=== PATIENT | female | born 1945 | race Caucasian/White ===

== ENCOUNTER 2017-11-11 14:19 | Inpatient (IN) ==
[2017-11-11] MEDS ORDERED: SODIUM CHLORIDE 0.9% 500 ML IV STA (15:06)
[2017-11-11] MEDS ORDERED: ASPIRIN 325 MG TABLET PO STA (15:06)
[2017-11-11] MEDS ORDERED: METOPROLOL TARTRATE 25 MG TABLET PO STA (15:08)
[2017-11-11] MEDS ORDERED: ENOXAPARIN 100 MG/ML SYRINGE SUBCUT STA (15:30)
[2017-11-11] MEDS ORDERED: ENOXAPARIN 60 MG/0.6 ML SYRINGE ONE (15:33)
[2017-11-11 15:34] LABS: Basophils # 0.1 10*3/uL (0.0-0.2); Basophils % 0.9 % (0.0-0.8); Eosinophils # 0.3 10*3/uL (0.0-0.87); Eosinophils % 3.1 % (0.00-10.9); Hematocrit 40.2 VOL% (35.7-47.0); Hemoglobin 13.7 GM/DL (12.0-16.0); Immature Granulocytes % 0.5 %; Immature Granulocytes Absolute 0.05 #; Lymphocytes # 2.1 10*3/uL (1.4-4.0); Mean Corpuscular HGB Conc 34.1 GM/DL (32-36); Mean Corpuscular Hemoglobin 29 PG (27-34); Mean Corpuscular Volume 85.7 FL (87-102); Mean Platelet Volume 10.1 FL (9.6-12.0); Monocytes # 0.8 10*3/uL (0.11-0.8); Monocytes % 8.7 % (1.7-12.7); Neutrophils # 6.3 10*3/uL (1.4-7.4); Neutrophils % 64.8 % (38.7-73.9); Platelet Count 243 T/CUMM (130-400); Red Blood Count 4.69 MC/CUMM (3.8-5.5); Red Cell Distribution Width 14.9 % (9.3-17.3); White Blood Count 9.7 T/CUMM (4-12)
[2017-11-11 15:46] LABS: PT Patient Result 10.1 SECS
[2017-11-11 16:01] LABS: Albumin 3.5 G/DL (3.4-5.0); Bilirubin,Total 0.6 MG/DL (0.2-1.0); Calcium 9.2 MG/DL (8.5-10.1); Osmolality,Calculated 289.8 MOS/KG (273-304); Potassium 2.6 MMOL/L (3.5-5.1); Thyroid Stimulating Hormone 2.78 uIU/ml (0.358-3.74); Total Protein 7.4 G/DL (6.4-8.3)
[2017-11-11 16:04] LABS: Troponin I Only 0.26 NG/ML (0.00-0.045)
[2017-11-11] MEDS ORDERED: POTASSIUM CHLORIDE 20 MEQ TABLET PO STA (16:18)
[2017-11-11] MEDS ORDERED: POTASSIUM CHLORIDE RIDER 10 MEQ in PREMIX 1 EACH IV ONE (16:18)
[2017-11-11] MEDS ORDERED: FUROSEMIDE 20 MG/2 ML VIAL IV STA (16:40)
[2017-11-11] MEDS ORDERED: ONDANSETRON 4 MG/2 ML VIAL IV PRN (18:59)
[2017-11-11] MEDS ORDERED: SODIUM CHLORIDE 0.9% 1,000 ML IV SCH (18:59)
[2017-11-11] MEDS ORDERED: MAGNESIUM SULF RIDER 4 GM in PREMIX 1 EACH IV PRN (18:59)
[2017-11-11] MEDS ORDERED: MAGNESIUM SULF RIDER 2 GM in PREMIX 1 EACH IV PRN (18:59)
[2017-11-11] MEDS ORDERED: NITROGLYCERIN SL 0.4 MG TABLET SL PRN (18:59)
[2017-11-11 19:10] LABS: Apearance,Urine CLEAR (Clear); Bilirubin,Urine Negative (Negative); Blood, Urine Small mg/dL (Negative); Glucose,Urine (UA) Negative (Negative); Ketones,Urine Negative (Negative); Mucus,Urine Occasional /LPF (Occasional); Nitrite,Urine Negative (Negative); Protein,Urine Negative; RBC,Urine 2 /HPF (0-4); Squamous Epithelial Cell,Urine Occasional /HPF (0-10); Urine Color Straw (Yellow); Urine Specific Gravity 1.008 (1.001-1.035); Urine Urobilinogen < 2.0 EU/DL (0.2-1.0); WBC,Urine 12 /HPF (0-6)
[2017-11-11] MEDS: ALBUTEROL/IPRATROPIUM 3 ML NEB RESP TX SCH (19:29)
[2017-11-11 20:03] LABS: Troponin I Only 0.258 NG/ML (0.00-0.045)
[2017-11-11] MEDS ORDERED: ALBUTEROL 2.5 MG/3 ML NEB RESP TX PRN (21:00)
[2017-11-11] MEDS ORDERED: ENOXAPARIN 60 MG/0.6 ML SYRINGE SUBCUT SCH (21:00)
[2017-11-11] MEDS ORDERED: ZALEPLON 5 MG CAPSULE PO PRN (21:00)
[2017-11-11] MEDS: ZOLPIDEM 5 MG TABLET PO PRN (21:40)
[2017-11-11] MEDS: CARVEDILOL 3.125 MG TABLET PO SCH (21:41)
[2017-11-11] MEDS: FUROSEMIDE 40 MG TABLET PO SCH (21:41)
[2017-11-11] MEDS: PANTOPRAZOLE 40 MG TABLET PO SCH (21:41)
[2017-11-12 05:22] LABS: Basophils # 0.1 10*3/uL (0.0-0.2); Basophils % 0.9 % (0.0-0.8); Eosinophils # 0.4 10*3/uL (0.0-0.87); Eosinophils % 3.9 % (0.00-10.9); Hematocrit 37.6 VOL% (35.7-47.0); Hemoglobin 11.9 GM/DL (12.0-16.0); Immature Granulocytes % 0.5 %; Immature Granulocytes Absolute 0.05 #; Lymphocytes # 2.5 10*3/uL (1.4-4.0); Lymphocytes % 26.1 % (21.3-54.2); Mean Corpuscular HGB Conc 31.6 GM/DL (32-36); Mean Corpuscular Hemoglobin 29 PG (27-34); Mean Corpuscular Volume 90.6 FL (87-102); Mean Platelet Volume 10.4 FL (9.6-12.0); Monocytes # 1.1 10*3/uL (0.11-0.8); Monocytes % 11.1 % (1.7-12.7); Neutrophils # 5.5 10*3/uL (1.4-7.4); Neutrophils % 57.5 % (38.7-73.9); Platelet Count 224 T/CUMM (130-400); Red Blood Count 4.15 MC/CUMM (3.8-5.5); Red Cell Distribution Width 15.1 % (9.3-17.3); White Blood Count 9.5 T/CUMM (4-12)
[2017-11-12 05:52] LABS: Bilirubin,Total 0.5 MG/DL (0.2-1.0); Calcium 8.7 MG/DL (8.5-10.1); Osmolality,Calculated 294.4 MOS/KG (273-304); Potassium 3.2 MMOL/L (3.5-5.1); Total Protein 6.5 G/DL (6.4-8.3); Troponin I Only 0.246 NG/ML (0.00-0.045)
[2017-11-12 05:53] LABS: Risk Ratio 3.78; Thyroid Stimulating Hormone 3.41 uIU/ml (0.358-3.74); VLDL CHOLESTEROL 40.4 MG/DL
[2017-11-12] MEDS: LEVOTHYROXINE 75 MCG TABLET PO SCH (06:29)
[2017-11-12] MEDS ORDERED: POTASSIUM CHLORIDE 20 MEQ TABLET PO ONE (06:30)
[2017-11-12] MEDS: methylPREDNISolone SOD SUC 125 MG/2 ML VIAL IV SCH ×2 (06:42→18:05)
[2017-11-12] MEDS: ALBUTEROL/IPRATROPIUM 3 ML NEB RESP TX SCH ×4 (07:02→19:20)
[2017-11-12 07:30] LABS: Calcium 8.6 MG/DL (8.5-10.1); Osmolality,Calculated 290.7 MOS/KG (273-304); Potassium 3.4 MMOL/L (3.5-5.1)
[2017-11-12] MEDS: ASPIRIN EC 81 MG TABLET PO SCH (08:32)
[2017-11-12] MEDS: PARoxetine 20 MG TABLET PO SCH (08:32)
[2017-11-12] MEDS: PANTOPRAZOLE 40 MG TABLET PO SCH ×2 (08:32→21:14)
[2017-11-12] MEDS: FUROSEMIDE 40 MG TABLET PO SCH ×2 (08:32→21:14)
[2017-11-12] MEDS: POTASSIUM CHLORIDE 20 MEQ TABLET PO SCH ×2 (08:32→21:14)
[2017-11-12] MEDS: ATORVASTATIN 40 MG TABLET PO SCH (08:32)
[2017-11-12] MEDS: CARVEDILOL 3.125 MG TABLET PO SCH ×2 (08:32→17:04)
[2017-11-12] MEDS: MAGNESIUM OXIDE 400 MG TABLET PO SCH ×2 (08:32→21:14)
[2017-11-12] MEDS: APIXABAN 2.5 MG TABLET PO SCH ×2 (08:33→21:14)
[2017-11-12] MEDS: SPIRONOLACTONE 25 MG TABLET PO SCH (08:33)
[2017-11-12] MEDS ORDERED: APIXABAN 5 MG TABLET PO SCH (09:00)
[2017-11-12] MEDS ORDERED: PANTOPRAZOLE 40 MG TABLET PO SCH (09:00)
[2017-11-12] MEDS ORDERED: LEVOFLOXACIN 500 MG TABLET PO SCH (09:00)
[2017-11-12 12:14] LABS: Troponin I Only 0.234 NG/ML (0.00-0.045)
[2017-11-12] MEDS ORDERED: ACETAMINOPHEN 325 MG TABLET PO PRN (16:47)
[2017-11-12] MEDS ORDERED: DOCUSATE SODIUM 100 MG CAPSULE PO PRN (16:47)
[2017-11-12] MEDS ORDERED: BISACODYL 5 MG TABLET PO PRN (16:47)
[2017-11-12] MEDS ORDERED: LACTULOSE 20 GM/30 ML UDCUP PO PRN (16:47)
[2017-11-12] MEDS ORDERED: PROMETHAZINE 25 MG TABLET PO PRN (16:47)
[2017-11-12] MEDS: ZOLPIDEM 5 MG TABLET PO PRN (21:13)
[2017-11-12] MEDS: FLUTICASONE/SALMETEROL 250-50 DISKUS 14 DOSE INH PRN (21:15)
[2017-11-13 04:26] LABS: Basophils % 0.1 % (0.0-0.8); Hematocrit 33.9 VOL% (35.7-47.0); Hemoglobin 10.7 GM/DL (12.0-16.0); Immature Granulocytes % 0.6 %; Immature Granulocytes Absolute 0.07 #; Lymphocytes # 0.9 10*3/uL (1.4-4.0); Lymphocytes % 8.5 % (21.3-54.2); Mean Corpuscular HGB Conc 31.6 GM/DL (32-36); Mean Corpuscular Hemoglobin 29 PG (27-34); Mean Corpuscular Volume 90.6 FL (87-102); Mean Platelet Volume 10.6 FL (9.6-12.0); Monocytes # 0.2 10*3/uL (0.11-0.8); Monocytes % 1.8 % (1.7-12.7); Neutrophils # 9.6 10*3/uL (1.4-7.4); Platelet Count 179 T/CUMM (130-400); Red Blood Count 3.74 MC/CUMM (3.8-5.5); Red Cell Distribution Width 14.7 % (9.3-17.3); White Blood Count 10.8 T/CUMM (4-12)
[2017-11-13] MEDS: LEVOTHYROXINE 75 MCG TABLET PO SCH (06:08)
[2017-11-13] MEDS: methylPREDNISolone SOD SUC 125 MG/2 ML VIAL IV SCH (06:08)
[2017-11-13] MEDS: ALBUTEROL/IPRATROPIUM 3 ML NEB RESP TX SCH (07:15)
[2017-11-13] MEDS: FLUTICASONE/SALMETEROL 250-50 DISKUS 14 DOSE INH PRN (07:19)
[2017-11-13 07:51] VITALS: BP 103/60
[2017-11-13] MEDS: APIXABAN 2.5 MG TABLET PO SCH (08:15)
[2017-11-13] MEDS: PANTOPRAZOLE 40 MG TABLET PO SCH (08:15)
[2017-11-13] MEDS: ATORVASTATIN 40 MG TABLET PO SCH (08:15)
[2017-11-13] MEDS: CARVEDILOL 3.125 MG TABLET PO SCH (08:15)
[2017-11-13] MEDS: MAGNESIUM OXIDE 400 MG TABLET PO SCH (08:15)
[2017-11-13] MEDS: ASPIRIN EC 81 MG TABLET PO SCH (08:16)
[2017-11-13] MEDS: SPIRONOLACTONE 25 MG TABLET PO SCH (08:16)
[2017-11-13] MEDS: FUROSEMIDE 40 MG TABLET PO SCH (08:16)
[2017-11-13] MEDS: PARoxetine 20 MG TABLET PO SCH (08:16)
[2017-11-13] MEDS: POTASSIUM CHLORIDE 20 MEQ TABLET PO SCH (08:16)
[2017-11-13] MEDS ORDERED: LEVOFLOXACIN 250 MG TABLET PO SCH (09:00)
== END 2017-11-13 09:17 | disposition home or self-care (01) | DRG 308 ==
LOC: N.ED 14:19 → N.EDINP 16:20 → N.TELEN 19:47
PROVIDERS: ADMIT Internal Medicine Cardiovascular Disease; ATTEND Internal Medicine Cardiovascular Disease

== ENCOUNTER 2018-04-10 04:05 | Inpatient (IN) ==
[2018-04-10] MEDS ORDERED: ONDANSETRON 4 MG/2 ML VIAL IV STA (04:27)
[2018-04-10] MEDS ORDERED: ALBUTEROL NEB SOLN 5 MG/ML 20 ML/BOTTLE CONT NEB STA (04:27)
[2018-04-10] MEDS ORDERED: methylPREDNISolone SOD SUC 125 MG/2 ML VIAL IV STA (04:27)
[2018-04-10 04:45] LABS: Basophils # 0.1 10*3/uL (0.0-0.2); Basophils % 0.4 % (0.0-0.8); Eosinophils % 0.2 % (0.00-10.9); Hematocrit 38.2 VOL% (35.7-47.0); Hemoglobin 12.2 GM/DL (12.0-16.0); Immature Granulocytes % 0.3 %; Immature Granulocytes Absolute 0.04 #; Lymphocytes # 1.4 10*3/uL (1.4-4.0); Lymphocytes % 11.5 % (21.3-54.2); Mean Corpuscular HGB Conc 31.9 GM/DL (32-36); Mean Corpuscular Hemoglobin 28 PG (27-34); Mean Corpuscular Volume 88.6 FL (87-102); Mean Platelet Volume 10.2 FL (9.6-12.0); Monocytes # 1.4 10*3/uL (0.11-0.8); Monocytes % 10.9 % (1.7-12.7); Neutrophils # 9.5 10*3/uL (1.4-7.4); Neutrophils % 76.7 % (38.7-73.9); Platelet Count 191 T/CUMM (130-400); Red Blood Count 4.31 MC/CUMM (3.8-5.5); Red Cell Distribution Width 14.7 % (9.3-17.3); White Blood Count 12.4 T/CUMM (4-12)
[2018-04-10 04:55] LABS: PT Patient Result 10.4 SECS
[2018-04-10 05:07] LABS: Albumin 3.4 G/DL (3.4-5.0); Bilirubin,Total 0.9 MG/DL (0.2-1.0); Calcium 10.1 MG/DL (8.5-10.1); Osmolality,Calculated 276.8 MOS/KG (273-304); Potassium 3.8 MMOL/L (3.5-5.1); Total Protein 7.4 G/DL (6.4-8.3)
[2018-04-10 05:21] LABS: Troponin I 0.167 NG/ML (0.00-0.045)
[2018-04-10] MEDS ORDERED: FUROSEMIDE 40 MG/4 ML VIAL IV STA (05:35)
[2018-04-10] MEDS ORDERED: NICOTINE 21 MG/24 HR PATCH TRANSDERM PRN (06:27)
[2018-04-10] MEDS ORDERED: methylPREDNISolone SOD SUC 40 MG/1 ML VIAL IV SCH (06:30)
[2018-04-10 06:53] LABS: Apearance,Urine CLEAR (Clear); Bacteria,Urine Occasional /HPF (Few); Bilirubin,Urine Negative (Negative); Blood, Urine Small mg/dL (Negative); Glucose,Urine (UA) Negative (Negative); Hyaline Casts,Urine 1 /LPF (0-3); Ketones,Urine Negative (Negative); Mucus,Urine Occasional /LPF (Occasional); Nitrite,Urine Negative (Negative); Protein,Urine Negative; RBC,Urine 4 /HPF (0-4); Squamous Epithelial Cell,Urine Occasional /HPF (0-10); Urine Color Yellow (Yellow); Urine Specific Gravity 1.012 (1.001-1.035); Urine Urobilinogen < 2.0 EU/DL (0.2-1.0); WBC,Urine <1 /HPF (0-6)
[2018-04-10 06:55] LABS: Barbiturates Screen,Urine Negative (Negative); Benzodiazepines Screen,Urine Negative (Negative); Cannabinoid Screen,Urine Negative (Negative); Opiate Screen,Urine Negative (Negative); Phencyclidine Screen,Urine Negative (Negative)
[2018-04-10] MEDS: ALBUTEROL/IPRATROPIUM 3 ML NEB RESP TX SCH ×6 (07:02→23:01)
[2018-04-10] MEDS ORDERED: LEVOFLOXACIN INJ 750 MG in PREMIX 1 EACH IV SCH (08:00)
[2018-04-10] MEDS ORDERED: MEROPENEM 500 MG in SODIUM CHLORIDE 0.9% 100 ML IV SCH (10:00)
[2018-04-10] MEDS: DICLOFENAC SODIUM 50 MG TABLET PO SCH ×2 (10:39→21:34)
[2018-04-10] MEDS: PANTOPRAZOLE 40 MG TABLET PO SCH (10:40)
[2018-04-10] MEDS ORDERED: NITROGLYCERIN SL 0.4 MG TABLET SL PRN (10:48)
[2018-04-10] MEDS: APIXABAN 2.5 MG TABLET PO SCH ×2 (14:06→21:33)
[2018-04-10] MEDS: FUROSEMIDE 40 MG TABLET PO SCH (15:55)
[2018-04-10] MEDS ORDERED: APIXABAN 5 MG TABLET PO SCH (21:00)
[2018-04-10] MEDS: FLUTICASONE/SALMETEROL 250-50 DISKUS 14 DOSE INH SCH (21:33)
[2018-04-10] MEDS: POTASSIUM CHLORIDE 20 MEQ TABLET PO SCH (21:33)
[2018-04-10] MEDS: CARVEDILOL 3.125 MG TABLET PO SCH (21:33)
[2018-04-10] MEDS: ZALEPLON 5 MG CAPSULE PO SCH (21:33)
[2018-04-11] MEDS: ALBUTEROL/IPRATROPIUM 3 ML NEB RESP TX SCH ×5 (02:24→19:26)
[2018-04-11 03:45] LABS: Basophils % 0.1 % (0.0-0.8); Hematocrit 31.6 VOL% (35.7-47.0); Immature Granulocytes % 0.5 %; Immature Granulocytes Absolute 0.06 #; Lymphocytes % 9.1 % (21.3-54.2); Mean Corpuscular HGB Conc 31.6 GM/DL (32-36); Mean Corpuscular Hemoglobin 28 PG (27-34); Mean Corpuscular Volume 89.5 FL (87-102); Mean Platelet Volume 11.2 FL (9.6-12.0); Monocytes % 9.4 % (1.7-12.7); Neutrophils # 8.9 10*3/uL (1.4-7.4); Neutrophils % 80.9 % (38.7-73.9); Platelet Count 183 T/CUMM (130-400); Red Blood Count 3.53 MC/CUMM (3.8-5.5); Red Cell Distribution Width 14.6 % (9.3-17.3); White Blood Count 11.1 T/CUMM (4-12)
[2018-04-11 04:00] LABS: Calcium 10.4 MG/DL (8.5-10.1); Osmolality,Calculated 292.5 MOS/KG (273-304); Potassium 4.2 MMOL/L (3.5-5.1)
[2018-04-11 04:13] LABS: Free T4 (Free Thyroxine) 1.12 NG/DL (0.76-1.46); Thyroid Stimulating Hormone 0.12 uIU/ml (0.358-3.74)
[2018-04-11] MEDS: ACETAMINOPHEN 325 MG TABLET PO PRN ×2 (05:33→09:22)
[2018-04-11] MEDS: LEVOTHYROXINE 75 MCG TABLET PO SCH (06:58)
[2018-04-11] MEDS ORDERED: prednisoLONE 5 MG TABLET PO SCH (09:00)
[2018-04-11] MEDS ORDERED: APIXABAN 5 MG TABLET PO SCH (09:00)
[2018-04-11] MEDS: ASPIRIN EC 81 MG TABLET PO SCH (09:21)
[2018-04-11] MEDS: PANTOPRAZOLE 40 MG TABLET PO SCH (09:22)
[2018-04-11] MEDS: AZITHROMYCIN 250 MG TABLET PO SCH (09:23)
[2018-04-11] MEDS: SPIRONOLACTONE 25 MG TABLET PO SCH (09:23)
[2018-04-11] MEDS: APIXABAN 2.5 MG TABLET PO SCH ×2 (09:23→21:14)
[2018-04-11] MEDS: FLUTICASONE/SALMETEROL 250-50 DISKUS 14 DOSE INH SCH ×2 (09:23→21:14)
[2018-04-11] MEDS: POTASSIUM CHLORIDE 20 MEQ TABLET PO SCH ×2 (09:23→21:14)
[2018-04-11] MEDS: PARoxetine 20 MG TABLET PO SCH (09:23)
[2018-04-11] MEDS: CARVEDILOL 3.125 MG TABLET PO SCH ×2 (09:23→21:13)
[2018-04-11] MEDS: ATORVASTATIN 40 MG TABLET PO SCH (09:23)
[2018-04-11] MEDS: DICLOFENAC SODIUM 50 MG TABLET PO SCH (09:23)
[2018-04-11] MEDS: FUROSEMIDE 40 MG/4 ML VIAL IV SCH ×2 (09:55→16:18)
[2018-04-11] MEDS: BISACODYL 5 MG TABLET PO PRN ×2 (10:38→16:17)
[2018-04-11] MEDS ORDERED: LEVOFLOXACIN INJ 750 MG in PREMIX 1 EACH IV ONE (11:00)
[2018-04-11] MEDS: FUROSEMIDE 40 MG TABLET PO SCH (11:31)
[2018-04-11] MEDS: ONDANSETRON 4 MG/2 ML VIAL IV PRN (16:18)
[2018-04-11 16:40] LABS: Apearance,Urine CLEAR (Clear); Bilirubin,Urine Negative (Negative); Blood, Urine Negative (Negative); Glucose,Urine (UA) Negative (Negative); Hyaline Casts,Urine 6 /LPF (0-3); Ketones,Urine Negative (Negative); Mucus,Urine Occasional /LPF (Occasional); Nitrite,Urine Negative (Negative); Protein,Urine Negative; Squamous Epithelial Cell,Urine Occasional /HPF (0-10); Urine Color Yellow (Yellow); Urine Specific Gravity 1.008 (1.001-1.035); Urine Urobilinogen < 2.0 EU/DL (0.2-1.0); WBC,Urine 1 /HPF (0-6)
[2018-04-11] MEDS ORDERED: POLYETHYLENE GLYCOL POWDER 17 GM PACK PO PRN (18:06)
[2018-04-11] MEDS: MICONAZOLE 100 MG VAG SUPP 7/BOX VAG SCH ×2 (18:12→21:15)
[2018-04-11] MEDS: ZALEPLON 5 MG CAPSULE PO SCH (21:13)
[2018-04-12] MEDS: ALBUTEROL/IPRATROPIUM 3 ML NEB RESP TX SCH ×7 (00:36→23:29)
[2018-04-12 03:40] LABS: Basophils % 0.2 % (0.0-0.8); Eosinophils % 0.1 % (0.00-10.9); Hematocrit 34.6 VOL% (35.7-47.0); Hemoglobin 10.8 GM/DL (12.0-16.0); Immature Granulocytes % 0.7 %; Lymphocytes # 1.4 10*3/uL (1.4-4.0); Lymphocytes % 9.9 % (21.3-54.2); Mean Corpuscular HGB Conc 31.2 GM/DL (32-36); Mean Corpuscular Hemoglobin 28 PG (27-34); Mean Corpuscular Volume 88.7 FL (87-102); Mean Platelet Volume 10.9 FL (9.6-12.0); Monocytes # 1.3 10*3/uL (0.11-0.8); Monocytes % 9.2 % (1.7-12.7); Neutrophils # 11.6 10*3/uL (1.4-7.4); Neutrophils % 79.9 % (38.7-73.9); Platelet Count 248 T/CUMM (130-400); Red Cell Distribution Width 14.9 % (9.3-17.3); White Blood Count 14.5 T/CUMM (4-12)
[2018-04-12 04:10] LABS: Calcium 9.8 MG/DL (8.5-10.1); Osmolality,Calculated 296.3 MOS/KG (273-304); Potassium 4.3 MMOL/L (3.5-5.1)
[2018-04-12] MEDS: PANTOPRAZOLE 40 MG TABLET PO SCH (10:01)
[2018-04-12] MEDS: FUROSEMIDE 40 MG/4 ML VIAL IV SCH ×2 (10:01→16:26)
[2018-04-12] MEDS: POTASSIUM CHLORIDE 20 MEQ TABLET PO SCH ×2 (10:01→21:03)
[2018-04-12] MEDS: BISACODYL 5 MG TABLET PO PRN (10:01)
[2018-04-12] MEDS: PARoxetine 20 MG TABLET PO SCH (10:02)
[2018-04-12] MEDS: ASPIRIN EC 81 MG TABLET PO SCH (10:02)
[2018-04-12] MEDS: ATORVASTATIN 40 MG TABLET PO SCH (10:02)
[2018-04-12] MEDS: APIXABAN 2.5 MG TABLET PO SCH ×2 (10:02→21:03)
[2018-04-12] MEDS: AZITHROMYCIN 250 MG TABLET PO SCH (10:03)
[2018-04-12] MEDS: CARVEDILOL 3.125 MG TABLET PO SCH ×2 (10:03→21:03)
[2018-04-12] MEDS: SPIRONOLACTONE 25 MG TABLET PO SCH (10:03)
[2018-04-12] MEDS: LEVOTHYROXINE 75 MCG TABLET PO SCH (10:04)
[2018-04-12] MEDS: methylPREDNISolone SOD SUC 40 MG/1 ML VIAL IV SCH ×2 (10:04→16:41)
[2018-04-12] MEDS: FLUTICASONE/SALMETEROL 250-50 DISKUS 14 DOSE INH SCH ×2 (10:05→21:08)
[2018-04-12 12:48] LABS: Apearance,Urine CLEAR (Clear); Bilirubin,Urine Negative (Negative); Blood, Urine Small mg/dL (Negative); Glucose,Urine (UA) Negative (Negative); Ketones,Urine Negative (Negative); Nitrite,Urine Negative (Negative); Protein,Urine Negative; RBC,Urine <1 /HPF (0-4); Urine Color Straw (Yellow); Urine Specific Gravity 1.004 (1.001-1.035); Urine Urobilinogen < 2.0 EU/DL (0.2-1.0)
[2018-04-12 13:22] LABS: ABG Base Excess 1.3 MMOL/L (-2.5-2.5); ABG HCO3 26.3 MMOL/L (20-26); ABG Oxygen Saturation 96.1 % (95-100); ABG PCO2 43.4 MM HG (35-48); ABG PH 7.401 (7.35-7.45); ABG PO2 86.4 MM HG (80-95); ABG TCO2 27.7 MMOL/L (23-27); Allen Test Positive; Pt O2 Delivery Device BIPAP
[2018-04-12] MEDS: DORNASE ALFA 2.5 MG/2.5 ML VIAL RESP TX SCH (19:29)
[2018-04-12] MEDS: ZALEPLON 5 MG CAPSULE PO SCH (21:03)
[2018-04-12] MEDS: MICONAZOLE 100 MG VAG SUPP 7/BOX VAG SCH (21:08)
[2018-04-13] MEDS: methylPREDNISolone SOD SUC 40 MG/1 ML VIAL IV SCH ×3 (01:02→16:23)
[2018-04-13 03:22] LABS: Basophils % 0.2 % (0.0-0.8); Hematocrit 36.7 VOL% (35.7-47.0); Hemoglobin 11.2 GM/DL (12.0-16.0); Immature Granulocytes % 2.2 %; Immature Granulocytes Absolute 0.29 #; Lymphocytes # 0.8 10*3/uL (1.4-4.0); Mean Corpuscular HGB Conc 30.5 GM/DL (32-36); Mean Corpuscular Hemoglobin 28 PG (27-34); Mean Platelet Volume 10.4 FL (9.6-12.0); Monocytes # 0.5 10*3/uL (0.11-0.8); Monocytes % 4.2 % (1.7-12.7); NRBC # 0.03 10*3/uL; Neutrophils # 11.3 10*3/uL (1.4-7.4); Neutrophils % 87.4 % (38.7-73.9); Platelet Count 274 T/CUMM (130-400); Red Blood Count 4.08 MC/CUMM (3.8-5.5); White Blood Count 12.9 T/CUMM (4-12)
[2018-04-13] MEDS: ALBUTEROL/IPRATROPIUM 3 ML NEB RESP TX SCH ×6 (03:40→22:41)
[2018-04-13 03:46] LABS: ABG Base Excess 0.8 MMOL/L (-2.5-2.5); ABG HCO3 25.1 MMOL/L (20-26); ABG Oxygen Saturation 98.7 % (95-100); ABG PCO2 41.9 MM HG (35-48); ABG PH 7.396 (7.35-7.45); Allen Test Positive; Pt O2 Delivery Device BIPAP
[2018-04-13 03:52] LABS: Osmolality,Calculated 291.5 MOS/KG (273-304); Potassium 5.2 MMOL/L (3.5-5.1)
[2018-04-13] MEDS: LEVOTHYROXINE 75 MCG TABLET PO SCH (06:57)
[2018-04-13] MEDS: DORNASE ALFA 2.5 MG/2.5 ML VIAL RESP TX SCH ×2 (07:53→19:17)
[2018-04-13] MEDS: CARVEDILOL 3.125 MG TABLET PO SCH ×2 (08:35→21:32)
[2018-04-13] MEDS: ATORVASTATIN 40 MG TABLET PO SCH (08:35)
[2018-04-13] MEDS: POTASSIUM CHLORIDE 20 MEQ TABLET PO SCH ×3 (08:35→21:34)
[2018-04-13] MEDS: PARoxetine 20 MG TABLET PO SCH (08:35)
[2018-04-13] MEDS: FUROSEMIDE 40 MG/4 ML VIAL IV SCH ×2 (08:36→16:23)
[2018-04-13] MEDS: AZITHROMYCIN 250 MG TABLET PO SCH (08:36)
[2018-04-13] MEDS: APIXABAN 2.5 MG TABLET PO SCH ×2 (08:36→21:32)
[2018-04-13] MEDS: ASPIRIN EC 81 MG TABLET PO SCH (08:36)
[2018-04-13] MEDS: SPIRONOLACTONE 25 MG TABLET PO SCH (08:36)
[2018-04-13] MEDS: PANTOPRAZOLE 40 MG TABLET PO SCH (08:37)
[2018-04-13] MEDS: FLUTICASONE/SALMETEROL 250-50 DISKUS 14 DOSE INH SCH ×2 (08:38→21:31)
[2018-04-13] MEDS ORDERED: LEVOFLOXACIN INJ 500 MG in PREMIX 1 EACH IV SCH (11:00)
[2018-04-13] MEDS: ONDANSETRON 4 MG/2 ML VIAL IV PRN (16:32)
[2018-04-13] MEDS: MICONAZOLE 100 MG VAG SUPP 7/BOX VAG SCH (21:31)
[2018-04-13] MEDS: ZALEPLON 5 MG CAPSULE PO SCH (21:32)
[2018-04-14] MEDS: methylPREDNISolone SOD SUC 40 MG/1 ML VIAL IV SCH ×2 (00:10→08:16)
[2018-04-14] MEDS: ALBUTEROL/IPRATROPIUM 3 ML NEB RESP TX SCH ×2 (02:37→07:55)
[2018-04-14 03:13] LABS: Basophils % 0.3 % (0.0-0.8); Hematocrit 34.4 VOL% (35.7-47.0); Hemoglobin 10.9 GM/DL (12.0-16.0); Immature Granulocytes % 6.1 %; Immature Granulocytes Absolute 0.95 #; Lymphocytes # 0.9 10*3/uL (1.4-4.0); Lymphocytes % 5.7 % (21.3-54.2); Mean Corpuscular HGB Conc 31.7 GM/DL (32-36); Mean Corpuscular Hemoglobin 28 PG (27-34); Mean Platelet Volume 10.4 FL (9.6-12.0); Monocytes # 1.1 10*3/uL (0.11-0.8); Monocytes % 6.9 % (1.7-12.7); NRBC # 0.03 10*3/uL; Neutrophils # 12.6 10*3/uL (1.4-7.4); Platelet Count 249 T/CUMM (130-400); Red Blood Count 3.91 MC/CUMM (3.8-5.5); Red Cell Distribution Width 14.8 % (9.3-17.3); White Blood Count 15.5 T/CUMM (4-12)
[2018-04-14 03:25] LABS: Calcium 10.3 MG/DL (8.5-10.1); Osmolality,Calculated 294.5 MOS/KG (273-304); Potassium 4.7 MMOL/L (3.5-5.1)
[2018-04-14 05:20] LABS: Lymphocytes 6 % (20-55); Platelet Estimate Normal; Segmented Neutrophils 84 % (50-85); Total Cells Counted 100
[2018-04-14] MEDS: LEVOTHYROXINE 75 MCG TABLET PO SCH (06:35)
[2018-04-14] MEDS: DORNASE ALFA 2.5 MG/2.5 ML VIAL RESP TX SCH (08:00)
[2018-04-14] MEDS: PANTOPRAZOLE 40 MG TABLET PO SCH (08:16)
[2018-04-14] MEDS: ASPIRIN EC 81 MG TABLET PO SCH (08:16)
[2018-04-14] MEDS: FUROSEMIDE 40 MG/4 ML VIAL IV SCH (08:16)
[2018-04-14] MEDS: SPIRONOLACTONE 25 MG TABLET PO SCH (08:16)
[2018-04-14] MEDS: AZITHROMYCIN 250 MG TABLET PO SCH (08:17)
[2018-04-14] MEDS: PARoxetine 20 MG TABLET PO SCH (08:17)
[2018-04-14] MEDS: APIXABAN 2.5 MG TABLET PO SCH (08:17)
[2018-04-14] MEDS: CARVEDILOL 3.125 MG TABLET PO SCH (08:17)
[2018-04-14] MEDS: ATORVASTATIN 40 MG TABLET PO SCH (08:17)
[2018-04-14] MEDS: FLUTICASONE/SALMETEROL 250-50 DISKUS 14 DOSE INH SCH (08:19)
[2018-04-14] MEDS: POTASSIUM CHLORIDE 20 MEQ TABLET PO SCH (08:19)
[2018-04-14 08:40] VITALS: BP 122/61
[2018-04-14] MEDS ORDERED: methylPREDNISolone 4 MG TABLET PO SCH ×2 (11:00→11:30)
[2018-04-14] MEDS ORDERED: CARVEDILOL 3.125 MG TABLET PO SCH (16:00)
[2018-04-15] MEDS ORDERED: CARVEDILOL 6.25 MG TABLET PO SCH (09:00)
== END 2018-04-14 12:08 | disposition home or self-care (01) | DRG 190 ==
LOC: N.ED 04:05 → N.EDINP 06:27 → SUATTDRO 06:27 → N.EDINP 07:30 → N.TELES 07:43
PROVIDERS: ADMIT Emergency Medicine; ATTEND Internal Medicine Infectious Disease

== ENCOUNTER 2018-12-08 12:49 | Observation (INO) ==
[2018-12-08] MEDS ORDERED: ALBUTEROL/IPRATROPIUM 3 ML NEB RESP TX STA (13:34)
[2018-12-08] MEDS ORDERED: methylPREDNISolone SOD SUC 125 MG/2 ML VIAL IV STA (13:34)
[2018-12-08 14:20] LABS: ABG Base Excess 0.4 MMOL/L (-2.5-2.5); ABG HCO3 24.7 MMOL/L (20-26); ABG Oxygen Saturation 94.2 % (95-100); ABG PCO2 36.1 MM HG (35-48); ABG PH 7.436 (7.35-7.45); ABG PO2 71.6 MM HG (80-95); ABG TCO2 22.2 MMOL/L (23-27); Allen Test Positive
[2018-12-08 14:34] LABS: Basophils # 0.1 10*3/uL (0.0-0.2); Basophils % 0.6 % (0.0-0.8); Eosinophils # 0.3 10*3/uL (0.0-0.87); Eosinophils % 2.9 % (0.00-10.9); Hematocrit 34.1 VOL% (35.7-47.0); Immature Granulocytes % 0.5 %; Immature Granulocytes Absolute 0.05 #; Lymphocytes # 1.8 10*3/uL (1.4-4.0); Mean Corpuscular HGB Conc 29.3 GM/DL (32-36); Mean Corpuscular Volume 88.1 FL (87-102); Monocytes % 10.4 % (1.7-12.7); Neutrophils % 68.6 % (38.7-73.9); Platelet Count 252 T/CUMM (130-400); Red Blood Count 3.87 MC/CUMM (3.8-5.5); Red Cell Distribution Width 15.5 % (9.3-17.3); White Blood Count 10.3 T/CUMM (4-12)
[2018-12-08 14:45] LABS: PT Patient Result 11.1 SECS; Partial Thromboplastin Time 25.8 SECS (0-40)
[2018-12-08 15:11] LABS: Apearance,Urine CLEAR (Clear); Bilirubin,Urine Negative (Negative); Blood, Urine Negative (Negative); Glucose,Urine (UA) Negative (Negative); Hyaline Casts,Urine 6 /LPF (0-3); Ketones,Urine Negative (Negative); Mucus,Urine Occasional /LPF (Occasional); Nitrite,Urine Negative (Negative); Protein,Urine Negative; Urine Color Yellow (Yellow); Urine Urobilinogen < 2.0 EU/DL (0.2-1.0)
[2018-12-08 15:11] LABS: Albumin 3.2 G/DL (3.4-5.0); Bilirubin,Total 0.5 MG/DL (0.2-1.0); Calcium 9.4 MG/DL (8.5-10.1); Osmolality,Calculated 285.3 MOS/KG (273-304); Total Protein 6.6 G/DL (6.4-8.3)
[2018-12-08 15:53] LABS: Barbiturates Screen,Urine Negative (Negative); Benzodiazepines Screen,Urine Negative (Negative); Cannabinoid Screen,Urine Negative (Negative); Opiate Screen,Urine Negative (Negative); Phencyclidine Screen,Urine Negative (Negative)
[2018-12-08] MEDS ORDERED: guaiFENesin/DM ER 600-30 MG TABLET PO PRN (15:58)
[2018-12-08] MEDS ORDERED: ONDANSETRON 4 MG/2 ML VIAL IV PRN (15:58)
[2018-12-08] MEDS ORDERED: ACETAMINOPHEN 325 MG TABLET PO PRN (15:58)
[2018-12-08] MEDS ORDERED: ALBUTEROL 2.5 MG/3 ML NEB RESP TX PRN (16:00)
[2018-12-08] MEDS ORDERED: NITROGLYCERIN SL 0.4 MG TABLET SL PRN (16:01)
[2018-12-08] MEDS: methylPREDNISolone SOD SUC 40 MG/1 ML VIAL IV SCH (17:30)
[2018-12-08] MEDS: FUROSEMIDE 40 MG/4 ML VIAL IV SCH (17:32)
[2018-12-08] MEDS: LEVOFLOXACIN INJ 750 MG in PREMIX 1 EACH IV SCH (17:34)
[2018-12-08] MEDS: ALBUTEROL/IPRATROPIUM 3 ML NEB RESP TX SCH (19:16)
[2018-12-08] MEDS ORDERED: FUROSEMIDE 20 MG TABLET PO SCH (21:00)
[2018-12-08] MEDS: CARVEDILOL 3.125 MG TABLET PO SCH (21:53)
[2018-12-08] MEDS: APIXABAN 2.5 MG TABLET PO SCH (21:53)
[2018-12-08] MEDS: POTASSIUM CHLORIDE 10 MEQ TABLET PO SCH (21:54)
[2018-12-08] MEDS: ZALEPLON 5 MG CAPSULE PO PRN (21:58)
[2018-12-08] MEDS: FLUTICASONE/SALMETEROL 250-50 DISKUS 14 DOSE INH SCH (22:00)
[2018-12-09] MEDS: ALBUTEROL/IPRATROPIUM 3 ML NEB RESP TX SCH ×4 (00:05→19:29)
[2018-12-09] MEDS: methylPREDNISolone SOD SUC 40 MG/1 ML VIAL IV SCH ×3 (00:08→16:24)
[2018-12-09] MEDS: ZALEPLON 5 MG CAPSULE PO PRN (00:09)
[2018-12-09 04:44] LABS: Basophils % 0.2 % (0.0-0.8); Hematocrit 29.7 VOL% (35.7-47.0); Hemoglobin 8.9 GM/DL (12.0-16.0); Immature Granulocytes % 0.6 %; Immature Granulocytes Absolute 0.04 #; Lymphocytes # 0.6 10*3/uL (1.4-4.0); Lymphocytes % 9.1 % (21.3-54.2); Mean Corpuscular Volume 86.3 FL (87-102); Mean Platelet Volume 10.4 FL (9.6-12.0); Monocytes % 1.2 % (1.7-12.7); Neutrophils % 88.9 % (38.7-73.9); Platelet Count 237 T/CUMM (130-400); Red Blood Count 3.44 MC/CUMM (3.8-5.5); Red Cell Distribution Width 15.2 % (9.3-17.3); White Blood Count 6.6 T/CUMM (4-12)
[2018-12-09 04:56] LABS: Calcium 9.7 MG/DL (8.5-10.1); Osmolality,Calculated 289.4 MOS/KG (273-304)
[2018-12-09] MEDS: LEVOTHYROXINE 75 MCG TABLET PO SCH (07:41)
[2018-12-09] MEDS: MAGNESIUM OXIDE 400 MG TABLET PO SCH (08:50)
[2018-12-09] MEDS: PANTOPRAZOLE 40 MG TABLET PO SCH (08:50)
[2018-12-09] MEDS: ATORVASTATIN 40 MG TABLET PO SCH (08:50)
[2018-12-09] MEDS: FLUTICASONE/SALMETEROL 250-50 DISKUS 14 DOSE INH SCH ×2 (08:51→22:52)
[2018-12-09] MEDS: SPIRONOLACTONE 25 MG TABLET PO SCH (08:51)
[2018-12-09] MEDS: PARoxetine 20 MG TABLET PO SCH (08:51)
[2018-12-09] MEDS: CARVEDILOL 3.125 MG TABLET PO SCH ×2 (08:51→22:46)
[2018-12-09] MEDS: POTASSIUM CHLORIDE 10 MEQ TABLET PO SCH ×2 (08:51→22:47)
[2018-12-09] MEDS: APIXABAN 2.5 MG TABLET PO SCH ×2 (08:51→22:47)
[2018-12-09] MEDS: ASPIRIN EC 81 MG TABLET PO SCH (08:51)
[2018-12-09] MEDS: ASCORBIC ACID 500 MG TABLET PO SCH (08:51)
[2018-12-09] MEDS: FUROSEMIDE 40 MG/4 ML VIAL IV SCH (08:55)
[2018-12-09] MEDS: FUROSEMIDE 40 MG TABLET PO SCH (16:24)
[2018-12-10] MEDS: ALBUTEROL/IPRATROPIUM 3 ML NEB RESP TX SCH ×4 (00:09→19:49)
[2018-12-10] MEDS ORDERED: METOPROLOL TARTRATE 5 MG/5 ML VIAL IV ONE (01:56)
[2018-12-10] MEDS: methylPREDNISolone SOD SUC 40 MG/1 ML VIAL IV SCH ×2 (02:06→09:00)
[2018-12-10 05:08] LABS: Basophils % 0.1 % (0.0-0.8); Hematocrit 29.9 VOL% (35.7-47.0); Hemoglobin 9.1 GM/DL (12.0-16.0); Immature Granulocytes % 0.6 %; Immature Granulocytes Absolute 0.08 #; Lymphocytes # 0.8 10*3/uL (1.4-4.0); Lymphocytes % 5.4 % (21.3-54.2); Mean Corpuscular HGB Conc 30.4 GM/DL (32-36); Mean Corpuscular Volume 85.9 FL (87-102); Mean Platelet Volume 10.5 FL (9.6-12.0); Monocytes % 3.9 % (1.7-12.7); NRBC # 0.02 10*3/uL; Platelet Count 262 T/CUMM (130-400); Red Blood Count 3.48 MC/CUMM (3.8-5.5); Red Cell Distribution Width 15.4 % (9.3-17.3); White Blood Count 13.8 T/CUMM (4-12)
[2018-12-10 05:16] LABS: Calcium 10.6 MG/DL (8.5-10.1); Osmolality,Calculated 293.4 MOS/KG (273-304)
[2018-12-10] MEDS: LEVOTHYROXINE 75 MCG TABLET PO SCH (06:32)
[2018-12-10] MEDS: FLUTICASONE/SALMETEROL 250-50 DISKUS 14 DOSE INH SCH ×2 (08:59→20:43)
[2018-12-10] MEDS: APIXABAN 2.5 MG TABLET PO SCH ×2 (09:00→20:42)
[2018-12-10] MEDS: FUROSEMIDE 40 MG TABLET PO SCH ×2 (09:00→16:20)
[2018-12-10] MEDS: PARoxetine 20 MG TABLET PO SCH (09:00)
[2018-12-10] MEDS: POTASSIUM CHLORIDE 10 MEQ TABLET PO SCH ×2 (09:00→20:42)
[2018-12-10] MEDS: SPIRONOLACTONE 25 MG TABLET PO SCH (09:00)
[2018-12-10] MEDS: ASCORBIC ACID 500 MG TABLET PO SCH (09:00)
[2018-12-10] MEDS: CARVEDILOL 3.125 MG TABLET PO SCH (09:00)
[2018-12-10] MEDS: ASPIRIN EC 81 MG TABLET PO SCH (09:00)
[2018-12-10] MEDS: ATORVASTATIN 40 MG TABLET PO SCH (09:00)
[2018-12-10] MEDS: PANTOPRAZOLE 40 MG TABLET PO SCH (09:00)
[2018-12-10] MEDS: MAGNESIUM OXIDE 400 MG TABLET PO SCH (09:02)
[2018-12-10] MEDS ORDERED: METOPROLOL TARTRATE 25 MG TABLET PO ONE (11:46)
[2018-12-10 12:28] LABS: Free T4 (Free Thyroxine) 1.32 NG/DL (0.76-1.46); Thyroid Stimulating Hormone 0.213 uIU/ml (0.358-3.74)
[2018-12-10] MEDS ORDERED: ACETAMINOPHEN 500 MG TABLET PO PRN (14:52)
[2018-12-10] MEDS ORDERED: diphenhydrAMINE CAP 25 MG CAPSULE PO PRN (14:52)
[2018-12-10] MEDS: LEVOFLOXACIN INJ 750 MG in PREMIX 1 EACH IV SCH (16:20)
[2018-12-10] MEDS: predniSONE 20 MG TABLET PO SCH (16:20)
[2018-12-10] MEDS: METOPROLOL TARTRATE 25 MG TABLET PO SCH (20:43)
[2018-12-11] MEDS: ALBUTEROL/IPRATROPIUM 3 ML NEB RESP TX SCH ×4 (01:51→19:08)
[2018-12-11] MEDS: LEVOTHYROXINE 75 MCG TABLET PO SCH (07:01)
[2018-12-11] MEDS: POLYETHYLENE GLYCOL POWDER 17 GM PACK PO SCH (10:04)
[2018-12-11] MEDS: LACTULOSE 20 GM/30 ML UDCUP PO SCH ×2 (10:04→21:37)
[2018-12-11] MEDS: ATORVASTATIN 40 MG TABLET PO SCH (10:05)
[2018-12-11] MEDS: ASPIRIN EC 81 MG TABLET PO SCH (10:05)
[2018-12-11] MEDS: PARoxetine 20 MG TABLET PO SCH (10:05)
[2018-12-11] MEDS: ASCORBIC ACID 500 MG TABLET PO SCH (10:05)
[2018-12-11] MEDS: APIXABAN 2.5 MG TABLET PO SCH ×2 (10:05→21:37)
[2018-12-11] MEDS: FUROSEMIDE 40 MG TABLET PO SCH ×2 (10:05→16:50)
[2018-12-11] MEDS: SPIRONOLACTONE 25 MG TABLET PO SCH (10:05)
[2018-12-11] MEDS: predniSONE 20 MG TABLET PO SCH (10:06)
[2018-12-11] MEDS: POTASSIUM CHLORIDE 10 MEQ TABLET PO SCH ×2 (10:06→21:37)
[2018-12-11] MEDS: FLUTICASONE/SALMETEROL 250-50 DISKUS 14 DOSE INH SCH ×2 (10:07→21:37)
[2018-12-11] MEDS: METOPROLOL TARTRATE 25 MG TABLET PO SCH ×4 (10:07→21:37)
[2018-12-11] MEDS: MAGNESIUM OXIDE 400 MG TABLET PO SCH (10:07)
[2018-12-11] MEDS: PANTOPRAZOLE 40 MG TABLET PO SCH (10:14)
[2018-12-12] MEDS: ALBUTEROL/IPRATROPIUM 3 ML NEB RESP TX SCH ×2 (00:34→07:02)
[2018-12-12 05:33] LABS: Basophils % 0.1 % (0.0-0.8); Hematocrit 31.3 VOL% (35.7-47.0); Hemoglobin 9.6 GM/DL (12.0-16.0); Immature Granulocytes % 0.8 %; Immature Granulocytes Absolute 0.13 #; Lymphocytes # 1.3 10*3/uL (1.4-4.0); Lymphocytes % 7.8 % (21.3-54.2); Mean Corpuscular HGB Conc 30.7 GM/DL (32-36); Mean Corpuscular Volume 84.4 FL (87-102); Mean Platelet Volume 10.9 FL (9.6-12.0); Monocytes % 11.5 % (1.7-12.7); NRBC # 0.19 10*3/uL; Neutrophils % 79.8 % (38.7-73.9); Platelet Count 197 T/CUMM (130-400); Red Blood Count 3.71 MC/CUMM (3.8-5.5); Red Cell Distribution Width 15.4 % (9.3-17.3); White Blood Count 16.2 T/CUMM (4-12)
[2018-12-12 06:02] LABS: % Iron Saturation 5.8 % (18-50); Calcium 9.3 MG/DL (8.5-10.1); Ferritin 47.1 ng/ml (8-252); Osmolality,Calculated 284.2 MOS/KG (273-304)
[2018-12-12] MEDS: LEVOTHYROXINE 75 MCG TABLET PO SCH (06:17)
[2018-12-12] MEDS: PANTOPRAZOLE 40 MG TABLET PO SCH (08:55)
[2018-12-12] MEDS: METOPROLOL TARTRATE 25 MG TABLET PO SCH (08:56)
[2018-12-12] MEDS: ATORVASTATIN 40 MG TABLET PO SCH (08:56)
[2018-12-12] MEDS: APIXABAN 2.5 MG TABLET PO SCH (08:56)
[2018-12-12] MEDS: POTASSIUM CHLORIDE 10 MEQ TABLET PO SCH (08:56)
[2018-12-12] MEDS: ASPIRIN EC 81 MG TABLET PO SCH (08:57)
[2018-12-12] MEDS: SPIRONOLACTONE 25 MG TABLET PO SCH (08:57)
[2018-12-12] MEDS: FUROSEMIDE 40 MG TABLET PO SCH (08:57)
[2018-12-12] MEDS: ASCORBIC ACID 500 MG TABLET PO SCH (08:57)
[2018-12-12] MEDS: POLYETHYLENE GLYCOL POWDER 17 GM PACK PO SCH (08:57)
[2018-12-12] MEDS: predniSONE 20 MG TABLET PO SCH (08:57)
[2018-12-12] MEDS: PARoxetine 20 MG TABLET PO SCH (08:57)
[2018-12-12] MEDS: MAGNESIUM OXIDE 400 MG TABLET PO SCH (08:57)
[2018-12-12] MEDS: LACTULOSE 20 GM/30 ML UDCUP PO SCH (08:58)
[2018-12-12] MEDS: FLUTICASONE/SALMETEROL 250-50 DISKUS 14 DOSE INH SCH (09:06)
[2018-12-12 12:20] VITALS: BP 110/55
== END 2018-12-12 13:05 | disposition home or self-care (01) ==
LOC: N.ED 12:49 → N.EDINP 12:49 → N.TELEN 18:05
PROVIDERS: ADMIT Internal Medicine; ATTEND Internal Medicine

== ENCOUNTER 2018-12-17 14:20 | Inpatient (IN) ==
[2018-12-17 15:05] LABS: Basophils % 0.1 % (0.0-0.8); Immature Granulocytes % 1.3 %; Immature Granulocytes Absolute 0.28 #; Lymphocytes # 0.9 10*3/uL (1.4-4.0); Lymphocytes % 4.2 % (21.3-54.2); Mean Corpuscular HGB Conc 31.4 GM/DL (32-36); Mean Corpuscular Volume 82.7 FL (87-102); Mean Platelet Volume 12.1 FL (9.6-12.0); Monocytes % 8.9 % (1.7-12.7); NRBC # 0.48 10*3/uL; Neutrophils % 85.5 % (38.7-73.9); Platelet Count 122 T/CUMM (130-400); Red Blood Count 4.23 MC/CUMM (3.8-5.5); Red Cell Distribution Width 16.1 % (9.3-17.3); White Blood Count 21.8 T/CUMM (4-12)
[2018-12-17 15:18] LABS: Partial Thromboplastin Time 30.6 SECS (0-40)
[2018-12-17 15:21] LABS: Apearance,Urine Slightly Hazy (Clear); Bilirubin,Urine Negative (Negative); Blood, Urine Moderate mg/dL (Negative); Glucose,Urine (UA) Negative (Negative); Hyaline Casts,Urine 10 /LPF (0-3); Ketones,Urine Negative (Negative); Mucus,Urine Occasional /LPF (Occasional); Nitrite,Urine Negative (Negative); Protein,Urine 30 MG/DL; RBC,Urine 1 /HPF (0-4); Urine Color Yellow (Yellow); Urine Specific Gravity 1.011 (1.001-1.035); Urine Urobilinogen < 2.0 EU/DL (0.2-1.0); WBC,Urine 1 /HPF (0-6)
[2018-12-17 15:23] LABS: INR 2.6
[2018-12-17 15:24] LABS: PT Patient Result 27.8 SECS
[2018-12-17 15:26] LABS: Barbiturates Screen,Urine Negative (Negative); Benzodiazepines Screen,Urine Negative (Negative); Cannabinoid Screen,Urine Negative (Negative); Opiate Screen,Urine Negative (Negative); Phencyclidine Screen,Urine Negative (Negative)
[2018-12-17 15:27] LABS: Allen Test Positive
[2018-12-17 15:28] LABS: ABG Base Excess -1.3 MMOL/L (-2.5-2.5); ABG HCO3 23.3 MMOL/L (20-26); ABG Oxygen Saturation 96.6 % (95-100); ABG PCO2 33.4 MM HG (35-48); ABG PH 7.434 (7.35-7.45); ABG PO2 90.3 MM HG (80-95); ABG TCO2 20.1 MMOL/L (23-27)
[2018-12-17 15:45] LABS: Albumin 3.1 G/DL (3.4-5.0); Bilirubin,Total 3.8 MG/DL (0.2-1.0); Calcium 8.5 MG/DL (8.5-10.1); Osmolality,Calculated 288.8 MOS/KG (273-304); Total Protein 6.6 G/DL (6.4-8.3)
[2018-12-17] MEDS ORDERED: SODIUM CHLORIDE 0.9% 500 ML IV STA (15:51)
[2018-12-17] MEDS ORDERED: ALBUTEROL/IPRATROPIUM 3 ML NEB RESP TX PRN (15:56)
[2018-12-17] MEDS ORDERED: ONDANSETRON 4 MG/2 ML VIAL IV PRN (15:56)
[2018-12-17] MEDS ORDERED: ALBUTEROL 2.5 MG/3 ML NEB RESP TX PRN (15:56)
[2018-12-17] MEDS ORDERED: ACETAMINOPHEN 325 MG TABLET PO PRN (15:56)
[2018-12-17] MEDS ORDERED: POLYETHYLENE GLYCOL POWDER 17 GM PACK PO PRN (16:01)
[2018-12-17] MEDS ORDERED: NITROGLYCERIN SL 0.4 MG TABLET SL PRN (16:01)
[2018-12-17] MEDS ORDERED: SODIUM POLYSTYRENE SULFATE 15 GM/60 ML BOTTLE PO STA (16:03)
[2018-12-17 16:12] LABS: Hypochromasia Slight; Lymphocytes 4 % (20-55); Nucleated Red Blood Cells 2 (0-5); Segmented Neutrophils 92 % (50-85); Total Cells Counted 100
[2018-12-17 16:13] LABS: Microcytosis Slight; Polychromasia Slight
[2018-12-17] MEDS ORDERED: LACTULOSE 20 GM/30 ML UDCUP PO PRN (16:30)
[2018-12-17] MEDS ORDERED: dilTIAZem Drip 125 MG/125 ML PREMIX IV SCH (17:30)
[2018-12-17] MEDS: DOXYCYCLINE HYCLATE INJ 100 MG in SODIUM CHLORIDE 0.9% 100 ML IV SCH (18:47)
[2018-12-17 18:54] LABS: Hepatitis B Surface Ag Quant < 0.10 Index; Hepatitis B Surface Ag Result Negative (Negative); Hepatitis C Virus Ab Quant 0.12 Index; Hepatitis C Virus Ab Result Negative (Negative)
[2018-12-17] MEDS ORDERED: CARVEDILOL 6.25 MG TABLET PO SCH (21:00)
[2018-12-17] MEDS ORDERED: APIXABAN 2.5 MG TABLET PO SCH (21:00)
[2018-12-17] MEDS ORDERED: FLUTICASONE/SALMETEROL 250-50 DISKUS 14 DOSE INH SCH (21:00)
[2018-12-17] MEDS ORDERED: FUROSEMIDE 20 MG TABLET PO SCH (21:00)
[2018-12-17] MEDS ORDERED: METOPROLOL TARTRATE 25 MG TABLET PO SCH (21:00)
[2018-12-17] MEDS ORDERED: SODIUM CHLORIDE 0.9% 250 ML IV ONE (22:09)
[2018-12-18] MEDS ORDERED: SODIUM POLYSTYRENE SULFATE 15 GM/60 ML BOTTLE PO ONE (00:22)
[2018-12-18 05:24] VITALS: BP 110/37
[2018-12-18] MEDS: DOXYCYCLINE HYCLATE INJ 100 MG in SODIUM CHLORIDE 0.9% 100 ML IV SCH (05:24)
[2018-12-18] MEDS ORDERED: LEVOTHYROXINE 75 MCG TABLET PO SCH (07:00)
[2018-12-18] MEDS ORDERED: predniSONE 20 MG TABLET PO SCH (09:00)
[2018-12-18] MEDS ORDERED: PANTOPRAZOLE 40 MG TABLET PO SCH (09:00)
[2018-12-18] MEDS ORDERED: ASPIRIN EC 81 MG TABLET PO SCH (09:00)
[2018-12-18] MEDS ORDERED: ASCORBATE CALCIUM 500 MG PO SCH (09:00)
[2018-12-18] MEDS ORDERED: ATORVASTATIN 40 MG TABLET PO SCH (09:00)
== END 2018-12-18 09:30 | disposition expired | DRG 308 ==
LOC: N.ED 14:20 → N.EDINP 15:56 → N.TELEN 17:18
PROVIDERS: ADMIT Internal Medicine; ATTEND Internal Medicine